=== PATIENT | female | born 2000 | race Caucasian/White ===

== ENCOUNTER 2019-02-22 14:11 | Emergency (ER) | payer OTHER ==
[2019-02-22] MEDS ORDERED: SODIUM CHLORIDE 0.9% 500 ML 500 ML IV STA (15:28)
--- NOTE | 2019-02-22 15:32 | ED ---
General Adult HPI - General Chief complaint: Abdominal Pain Stated complaint: has mono/ abd pain Time Seen by Provider: 02/22/19 15:06 Source: patient, RN notes reviewed Mode of arrival: ambulatory Limitations: no limitations - History of Present Illness Initial comments: Gypsy is a 18-year-old female without any significant past medical history who presents for left upper quadrant pain. Patient states that about 2 weeks ago she was diagnosed with mono. States that she had blood work done in her liver enzymes were elevated so an ultrasound of the spleen was obtained. This showed an enlarged spleen of 16.6 cm. Patient states that she was starting to feel better 2 days ago but yesterday started to have worsening left upper quadrant pain. States she has finished her course of prednisone. Denies any other complaints.Patient has no other complaints at this time including shortness of breath, chest pain, nausea or vomiting, headache, or visual changes. - Related Data Home Medications Medication Instructions Recorded Confirmed Norgestimate-Ethinyl Estradiol 1 tab PO HS 02/22/19 02/22/19 [Tri-Sprintec Tablet] Sulfamethox-Tmp 800-160Mg [Bactrim 1 tab PO Q12HR 02/22/19 02/22/19 DS 800-160 mg] Previous Rx's Medication Instructions Recorded Famotidine [Pepcid] 20 mg PO BID #20 tablet 02/22/19 Allergies Allergy/AdvReac Type Severity Reaction Status Date / Time No Known Allergies Allergy Verified 02/22/19 15:01 Review of Systems ROS Statement: Those systems with pertinent positive or pertinent negative responses have been documented in the HPI. ROS Other: All systems not noted in ROS Statement are negative. Past Medical History Past Medical History: No Reported History History of Any Multi-Drug Resistant Organisms: None Reported Past Surgical History: No Surgical Hx Reported Past Psychological History: No Psychological Hx Reported Smoking Status: Never smoker Past Alcohol Use History: None Reported Past Drug Use History: None Reported General Exam Limitations: no limitations General appearance: alert, in no apparent distress Head exam: Present: atraumatic, normocephalic, normal inspection Eye exam: Present: normal appearance, PERRL, EOMI. Absent: scleral icterus, conjunctival injection, periorbital swelling ENT exam: Present: normal exam, mucous membranes moist Neck exam: Present: normal inspection, full ROM. Absent: tenderness, meningismus, lymphadenopathy Respiratory exam: Present: normal lung sounds bilaterally. Absent: respiratory distress, wheezes, rales, rhonchi, stridor Cardiovascular Exam: Present: regular rate, normal rhythm, normal heart sounds. Absent: systolic murmur, diastolic murmur, rubs, gallop, clicks GI/Abdominal exam: Present: soft, tenderness (mild tenderness LUQ without guarding or rebound), normal bowel sounds. Absent: distended, guarding, rebound, rigid Neurological exam: Present: alert, oriented X3, CN II-XII intact Psychiatric exam: Present: normal affect, normal mood Course Vital Signs 02/22/19 14:27 Temperature 97.7 F Pulse Rate 83 Respiratory 16 Rate Blood Pressure 134/90 O2 Sat by Pulse 100 Oximetry Medical Decision Making - Medical Decision Making Gypsy is a 18-year-old female presenting with upper abdominal pain. Patient states that she had mono 2 weeks ago and had worsening pain in the upper abdomen today. States that she had elevated liver enzymes with an enlarged spleen. On presentation mild left upper quadrant tenderness. Abdomen is soft to palpation. CBC is unremarkable. CMP shows mild transaminitis of 50-70. Patient reports these were in the 400s last week. Lipase is 522 is mildly elevated but not an acute pancreatitis. Urine is negative. Abdomen ultrasound revealed a spleen of 11.6 cm which is decreased from patient's reported measurement last week of 16.6 cm. Patient was on steroids last week, pain could be related to gastritis so will be started on Pepcid. She will follow up with primary care to have lipase repeated. However she is having worsening upper abdominal pain she will return to the emergency department. - Lab Data Result diagrams: 02/22/19 15:25 02/22/19 15:25 Lab Results 02/22/19 02/22/19 02/22/19 Range/Units 15:25 15:25 15:56 WBC 10.1 (4.0-11.0) k/uL RBC 4.76 (3.80-5.40) m/uL Hgb 13.5 (11.4-16.0) gm/dL Hct 41.0 (34.0-46.0) % MCV 86.3 (80.0-100.0) fL MCH 28.4 (25.0-35.0) pg MCHC 32.9 (31.0-37.0) g/dL RDW 13.3 (11.5-15.5) % Plt Count 487 H (150-450) k/uL Neutrophils % 53 % Lymphocytes % 35 % Monocytes % 7 % Eosinophils % 2 % Basophils % 1 % Neutrophils # 5.4 (1.3-7.7) k/uL Lymphocytes # 3.5 (1.0-4.8) k/uL Monocytes # 0.7 (0-1.0) k/uL Eosinophils # 0.2 (0-0.7) k/uL Basophils # 0.1 (0-0.2) k/uL Sodium 135 L (137-145) mmol/L Potassium 3.7 (3.5-5.1) mmol/L Chloride 99 (98-107) mmol/L Carbon Dioxide 25 (22-30) mmol/L Anion Gap 11 mmol/L BUN 14 (7-17) mg/dL Creatinine 0.87 (0.52-1.04) mg/dL Est GFR (CKD-EPI)AfAm >90 (>60 ml/min/1.73 sqM) Est GFR (CKD-EPI)NonAf >90 (>60 ml/min/1.73 sqM) Glucose 80 (74-99) mg/dL Calcium 9.2 (8.4-10.2) mg/dL Total Bilirubin 0.7 (0.2-1.3) mg/dL AST 50 H (14-36) U/L ALT 70 H (9-52) U/L Alkaline Phosphatase 168 H (38-126) U/L Total Protein 8.5 H (6.3-8.2) g/dL Albumin 4.3 (3.5-5.0) g/dL Amylase 93 (30-110) U/L Lipase 522 H (23-300) U/L Urine Color Colorless Urine Appearance Clear (Clear) Urine pH 6.0 (5.0-8.0) Ur Specific [place] 1.001 (1.001-1.035) Urine Protein Negative (Negative) Urine Glucose (UA) Negative (Negative) Urine Ketones Negative (Negative) Urine Blood Negative (Negative) Urine Nitrite Negative (Negative) Urine Bilirubin Negative (Negative) Urine Urobilinogen <2.0 (<2.0) mg/dL Ur Leukocyte Esterase Negative (Negative) Urine HCG, Qual (Not Detectd) 07/24/19 Range/Units 15:56 WBC (4.0-11.0) k/uL RBC (3.80-5.40) m/uL Hgb (11.4-16.0) gm/dL Hct (34.0-46.0) % MCV (80.0-100.0) fL MCH (25.0-35.0) pg MCHC (31.0-37.0) g/dL RDW (11.5-15.5) % Plt Count (150-450) k/uL Neutrophils % % Lymphocytes % % Monocytes % % Eosinophils % % Basophils % % Neutrophils # (1.3-7.7) k/uL Lymphocytes # (1.0-4.8) k/uL Monocytes # (0-1.0) k/uL Eosinophils # (0-0.7) k/uL Basophils # (0-0.2) k/uL Sodium (137-145) mmol/L Potassium (3.5-5.1) mmol/L Chloride (98-107) mmol/L Carbon Dioxide (22-30) mmol/L Anion Gap mmol/L BUN (7-17) mg/dL Creatinine (0.52-1.04) mg/dL Est GFR (CKD-EPI)AfAm (>60 ml/min/1.73 sqM) Est GFR (CKD-EPI)NonAf (>60 ml/min/1.73 sqM) Glucose (74-99) mg/dL Calcium (8.4-10.2) mg/dL Total Bilirubin (0.2-1.3) mg/dL AST (14-36) U/L ALT (9-52) U/L Alkaline Phosphatase (38-126) U/L Total Protein (6.3-8.2) g/dL Albumin (3.5-5.0) g/dL Amylase (30-110) U/L Lipase (23-300) U/L Urine Color Urine Appearance (Clear) Urine pH (5.0-8.0) Ur Specific [place] (1.001-1.035) Urine Protein (Negative) Urine Glucose (UA) (Negative) Urine Ketones (Negative) Urine Blood (Negative) Urine Nitrite (Negative) Urine Bilirubin (Negative) Urine Urobilinogen (<2.0) mg/dL Ur Leukocyte Esterase (Negative) Urine HCG, Qual Not Detected (Not Detectd) Disposition Clinical Impression: Abdominal pain, Elevated lipase Disposition: HOME SELF-CARE Condition: Good Instructions (If sedation given, give patient instructions): Abdominal Pain (ED) Additional Instructions: Please take Pepcid as directed. Please drink plenty of fluids. Follow-up with primary care for repeat lipase. If you are having any worsening symptoms then be sure to return to the emergency department. Prescriptions: Famotidine [Pepcid] 20 mg PO BID #20 tablet Is patient prescribed a controlled substance at d/c from ED?: No Referrals: Grabiel Wray MD [Primary Care Provider] - 1-2 days Time of Disposition: 16:41
[2019-02-22 15:55] LABS: Basophils # (A) 0.1 k/uL (0-0.2); Basophils % (A) 1 %; Eosinophils # (A) 0.2 k/uL (0-0.7); Eosinophils % (A) 2 %; HGB 13.5 gm/dL (11.4-16.0); Lymphocytes # (A) 3.5 k/uL (1.0-4.8); Lymphocytes % (A) 35 %; MCH 28.4 pg (25.0-35.0); MCHC 32.9 g/dL (31.0-37.0); MCV 86.3 fL (80.0-100.0); Mean Platelet Volume 8.4; Monocytes # (A) 0.7 k/uL (0-1.0); Monocytes % (A) 7 %; Neutrophils # (A) 5.4 k/uL (1.3-7.7); Neutrophils % (A) 53 %; Platelet Count 487 k/uL (150-450); RBC 4.76 m/uL (3.80-5.40); RDW 13.3 % (11.5-15.5); WBC 10.1 k/uL (4.0-11.0)
[2019-02-22 15:59] LABS: ALT 70 U/L (9-52); AST 50 U/L (14-36); African American GFR (CKD) >90 (>60 ml/min/1.73 sqM); Albumin 4.3 g/dL (3.5-5.0); Alkaline Phosphatase 168 U/L (38-126); Amylase 93 U/L (30-110); Anion Gap 11 mmol/L; Blood Urea Nitrogen 14 mg/dL (7-17); Calcium 9.2 mg/dL (8.4-10.2); Carbon Dioxide 25 mmol/L (22-30); Chloride 99 mmol/L (98-107); Glucose 80 mg/dL (74-99); Potassium 3.7 mmol/L (3.5-5.1); Sodium 135 mmol/L (137-145); Total Bilirubin 0.7 mg/dL (0.2-1.3); Total Protein 8.5 g/dL (6.3-8.2)
[2019-02-22 16:07] LABS: Appearance,Urine Clear (Clear); Bilirubin,Urine Negative (Negative); Blood,Urine Negative (Negative); Color,Urine Colorless; Glucose,Urine (UA) Negative (Negative); Ketones,Urine Negative (Negative); Leukocyte Esterase,Urine Negative (Negative); Nitrite,Urine Negative (Negative); Protein,Urine Negative (Negative); Specific Gravity,Urine 1.001 (1.001-1.035); Urobilinogen,Urine <2.0 mg/dL (<2.0)
--- NOTE | 2019-02-22 16:27 | US ---
EXAMINATION TYPE: US abdomen limited DATE OF EXAM: 02/22/2019 COMPARISON: NONE CLINICAL HISTORY: spleen, pain, mono. No trauma, abdominal pain. Patient had mono EXAM MEASUREMENTS: Spleen: 11.6 cm Left Kidney: 10.0 x 4.3 x 4.0 cm 1. Spleen: wnl 2. Left Kidney: No hydronephrosis or masses seen Spleen size may be slightly underestimated. There is no ascites evident. IMPRESSION: Upper limit of normal spleen size, limited exam
[2019-02-22] MEDS ORDERED: FAMOTIDINE 20 MG TAB PO STA (16:53)
[2019-02-22 17:04] VITALS: BP 146/85; PULSE 71; RESP 19; TEMP 97.8
== END 2019-02-22 17:04 | disposition home or self-care (01) ==
LOC: EC 14:11
DX: R10.12 Left upper quadrant pain (principal); R74.8 Abnormal levels of other serum enzymes; R74.0 Nonspecific elevation of levels of transaminase and lactic acid dehydrogenase [LDH]; Z79.3 Long term (current) use of hormonal contraceptives
CPT/HCPCS: 36415; 76705; 80053; 81003; 81025; 82150; 83690; 85025; 99284